=== PATIENT | female | born 1965 | race Caucasian/White ===

== ENCOUNTER → 2018-12-07 | Day surgery (SDC) | payer OTHER ==
--- NOTE | 2018-12-12 11:26 | PATH ---
Surgical Pathology Report Patient Name: MAHIN SNELL [facility]. Rec. #: [id number] /Age/Gender: 1965 (Age: 53) / F Account: [id number] Location: [facility] Taken: 12/07/2018 Received: 12/07/2018 Reported: 12/12/2018 Physicians: Daniel Case M.D. Specimen(s) Received A: LEFT BREAST SPECIMEN WITH CALCIFICATIONS B: LEFT BREAST SPECIMEN WITHOUT CALCIFICATIONS Clinical History Mammographic findings: Microcalcification, suspicious Final Diagnosis A. LEFT BREAST SPECIMEN CALCIFICATIONS, STEREOTACTIC BIOPSY: BREAST TISSUE WITH SCLEROSING ADENOSIS, STROMAL FIBROSIS, AND MICROCALCIFICATIONS. B. LEFT BREAST SPECIMEN WITHOUT CALCIFICATIONS, STEREOTACTIC BIOPSY: BREAST TISSUE WITH SMALL FOCUS OF ATYPICAL LOBULAR HYPERPLASIA, SCLEROSING ADENOSIS, STROMAL FIBROSIS, AND MICROCALCIFICATIONS. Comment: Immunohistochemical stains performed (block A1 and B4) and interpreted at [facility] show the following results: smooth muscle myosin heavy chain and p63 highlight the intact myoepithelial cell layer in the areas of sclerosing adenosis. E-Cadherin was attempted on block B1, but it is non-contributory. The focus of atypical lobular hyperplasia is no longer present in the deeper section. Electronically Signed Rosalio Espino M.D. Gross Description A. Received in formalin labeled "left breast with calcifications," is a 1.7 x 1.7 x 0.3 cm aggregate of multiple benavides-yellow, irregular to cylindrical portions of fibroadipose tissue. The formalin is filtered and the specimen is entirely submitted in one cassette. B. Received in formalin labeled "left breast without calcifications," is a 4.2 x 4.0 x 0.3 cm aggregate of benavides-yellow, irregular to cylindrical portions of fibroadipose tissue. The formalin is filtered and the specimen is entirely submitted in 4 cassettes. Time to formalin fixation: 5 minutes Total formalin fixation time: Approximately 32 hours. 12/08/201812/08/2018
== END | disposition home or self-care (01) ==
LOC: FMAMMOTONE 08:36
PROVIDERS: ATTEND Surgery Surgical Oncology
PROC: 0HBU3ZX Excision of Left Breast, Percutaneous Approach, Diagnostic (ICD-10-PCS; principal; 2018-12-07)
DX: N60.22 Fibroadenosis of left breast (principal); N60.32 Fibrosclerosis of left breast; N60.89 Other benign mammary dysplasias of unspecified breast; N64.89 Other specified disorders of breast; R92.1 Mammographic calcification found on diagnostic imaging of breast
CPT/HCPCS: 19081; 87899; 88305-TC; 88341-TC; 88342-TC; A4648